=== PATIENT | female | born 1965 | race Caucasian/White ===

== ENCOUNTER 2016-12-01 10:00 | Inpatient (IN) ==
[2016-12-01] MEDS ORDERED: *HR* Midazolam HCl 2 MG/2 ML VIAL ONE (10:09)
[2016-12-01] MEDS ORDERED: *HR* FentaNYL (PF) 100 MCG/2 ML VIAL ONE ×2 (10:09→13:00)
[2016-12-01] MEDS ORDERED: *HR* Rocuronium Bromide 50 MG/5 ML VIAL ONE (10:09)
[2016-12-01] MEDS ORDERED: Lidocaine -MPF 2% 2 ML VIAL ONE (10:09)
[2016-12-01] MEDS ORDERED: Ondansetron 4 MG/2 ML VIAL ONE (10:09)
[2016-12-01] MEDS ORDERED: *HR* Propofol 200 MG/20 ML VIAL IVP ONE (10:10)
[2016-12-01] MEDS ORDERED: Albuterol 2.5 MG/3 ML NEBULIZER IH ONE (10:21)
[2016-12-01] MEDS ORDERED: Vancomycin 750 MG in D5% in Water 250 ML IVPB ONE (10:21)
[2016-12-01] MEDS ORDERED: CeFAZolin Pre 2,000 MG/100 ML 2,000 MG/100 ML BAG IVPB ONE (10:21)
[2016-12-01] MEDS ORDERED: Neostigmine Methylsulfate 3 MG/3 ML SYRINGE ONE (10:25)
[2016-12-01] MEDS ORDERED: Ringers Solution, Lactated 1,000 ML IVC SCH (10:30)
--- NOTE | 2016-12-01 10:39 | Anesthesia Evaluation PreOp ---
Date of Encounter: 12/01/16 Time of Encounter: 10:37 - Past History Planned Operation: Aortobifemoral bypass Cardiac History: HTN, Hyperlipidemia, Cardiac Stent (2 STAN placed ), Other (peripheral vascular disease; infra-renal aortic occlusion) Pulmonary History: Smoker, COPD LACE STRIPPER History: Denies Any Significant HX Other Medical History: Denies Any Significant HX Anesthesia History: No Prior Anesthetic Complications Alcohol Use: none Drug use: none Medications and Allergies Albuterol Sulfate [Albuterol Inhaler] 1 - 2 puff IH Q6HR PRN 08/14/15 [History] Cetirizine HCl [Zyrtec] 10 mg PO DAILY 08/14/15 [History] Citalopram Hydrobromide [Celexa] 10 mg PO DAILY 08/14/15 [History] Gabapentin [Neurontin] 300 mg PO BID 08/14/15 [History] Losartan Potassium [Cozaar] 25 mg PO DAILY 08/14/15 [History] Ranitidine HCl [Zantac] 150 mg PO DAILY 08/14/15 [History] Aspirin 81 mg PO DAILY 30 Days 08/17/15 [Rx] Atorvastatin [Lipitor] 40 mg PO HS 30 Days 08/17/15 [Rx] Budesonide/Formoterol 160/4.5 [Symbicort 160/4.5] 1 puff IH BIDR 30 Days [Rx] Ipratropium/Albuterol Neb [Duoneb] 3 ml IH Q4HR 30 Days 08/17/15 [Rx] OxyCODONE Immed Rel [Roxicodone 5 MG] 10 mg PO Q6HR PRN #20 tablet 08/17/15 [Rx] Clopidogrel [Plavix] 75 mg PO DAILY #30 tablet 10/10/15 [Rx] Metoprolol [Lopressor] 100 mg PO BID #60 tablet 10/10/15 [Rx] Nitroglycerin 0.4 mg SL Q5MIN PRN #30 tab.subl 10/10/15 [Rx] Allergies lisinopril Adverse Reaction (Verified 09/30/15 10:20) Dizziness - Meds/Allergy Pre-op Review Medications Reviewed: Yes Allergies Reviewed: Yes Beta Blockers on Current Med List: Yes If Beta Blockers taken, Date/Time (Last Dose taken): 8-3-17 metoprolol 8 am Anesthesia Results - Labs Laboratory Tests 11/28/16 11/28/16 11/28/16 13:05 13:05 13:05 WBC 8.8 Hgb 12.8 Hct 39.9 Plt Count 280 PT 11.8 INR 1.1 APTT 34.9 Sodium 140 Potassium 4.6 H Chloride 106 Carbon Dioxide 27 BUN 13 Creatinine 1.51 H Est GFR ( Amer) 44 L Est GFR (Non-Af Amer) 36 L BUN/Creatinine Ratio 9 Glucose 98 Calculated Osmolality 290 Calcium 9.5 - Imaging EKG: report reviewed, image reviewed (SR; marked LAD, septal MS (probably old)) Additional studies: TTE: LVEF 60-65% mild prolapse anterior mitral valve leaflet mod MR Anesthesia Exam Last Vital Signs Temp 98.5 F 12/01/16 10:15 Pulse 75 12/01/16 10:15 Resp 18 12/01/16 10:15 BP 140/73 12/01/16 10:15 Pulse Ox 97 12/01/16 10:15 Weight: 56kg NPO (# of Hours): >> 8 hrs - HEENT Pupil (Motor): Pupils equal, EOMI Mallampati: II Teeth: Missing, Poor dentition Denture Type: Upper: Complete Oral Opening: Greater than 3 - LACE STRIPPER LOC: Oriented - Cardiac Rhythm: Regular Murmur: None - Pulmonary Breath Sounds: bilateral Clear Respiratory Effort: Symmetrical Anesthesia Assess/Plan ASA Score: 3 Modified Tisha Scale for Level of Consciousness: Cooperative, oriented, and tranquil Anesthetic Plan: General Monitoring Plan: Standard Monitors, A-Line, CVC Recovery Plan: PACU (or ICU if needed)
--- NOTE | 2016-12-01 11:02 | History & Physical Report ---
Date of Encounter: 12/01/16 Time of Encounter: 10:50 24 Hour HP Update - Instructions Instructions: If the History and Physical is less than 30 days old and was completed prior to A.M. admission and or procedure and has NOT been updated on calendar day of procedure please complete this update prior to performing procedure. - Update Patient reports changes in Medical Condition: No Changes in examination, assessment, or condition: No Changes in Medication: No Preop tests/diagnostics Reviewed: Yes Surgery Remains Indicated: Yes Consent for Planned Operative Procedure(s) Verified: Yes - Pre-Operative Checklist Preoperative Checklist Indicated: Yes Prophylactic Antibiotic Ordered: Yes (Vancomycin due to risk of MRSA) Home Medications Include Beta Blanac: Yes Beta Blanca Taken Today (Day of Surgery): Yes Beta Blanca Taken Yesterday (Day Prior to Surgery): Yes Is VTE Prophylaxis Indicated?: Yes
[2016-12-01] MEDS ORDERED: Heparin 1,000 UNITS/500 mL NS 500 ML ONE (11:13)
[2016-12-01] MEDS ORDERED: *HR* Phenylephrine 10 MG/ML VIAL ONE (12:42)
[2016-12-01] MEDS ORDERED: *HR* Promethazine 25 MG/ML VIAL IVP PRN ×2 (13:28→16:53)
[2016-12-01] MEDS ORDERED: *HR* Metoprolol 5 MG/5 ML VIAL IVP PRN (13:28)
[2016-12-01] MEDS ORDERED: Albuterol 2.5 MG/3 ML NEBULIZER IH PRN (13:28)
[2016-12-01] MEDS ORDERED: Vancomycin 1,000 MG VIAL ONE ×2 (14:52→15:11)
--- NOTE | 2016-12-01 16:31 | Electrocardiograph Report ---
[facility] Test Date: 2016-12-01 Pat Name: Li Forbes Department: [id number] Room: Gender: F Sewing Inspector: ARETHA : 1965 Requested By: Elvin Valdez Order Number: [id number] Reading MD: Jenae Herrera DO Measurements Intervals [place] Rate: 70 P: 65 MI: 207 QRS: -48 QRSD: 83 T: 25 QT: 398 QTc: 418 Interpretive Statements SINUS RHYTHM MARKED LEFT AXIS DEVIATION SEPTAL MYOCARDIAL INFARCTION, PROBABLY OLD SLOW R WAVE PROGRESSION Electronically Signed On 12-01-2016 16:29:10 EDT by Jenae Herrera DO
--- NOTE | 2016-12-01 16:57 | Operative Note ---
Date of procedure: 12/01/16 Pre-op diagnosis: Peripheral vascular disease with disabling claudication Post-op diagnosis: same Procedure: 1. Aortobifemoral bypass with 14 x 7mm Dacron Hemashield graft. 2. Right common and deep femoral endareterectomy. Complications: None Anesthesia: ERIN Surgeon: Elvin Valdez Bulldozer Mechanic: Bora Calloway Estimated blood loss (cc): 300 Specimen: Aortic and femoral thrombus and plaque Condition: stable Disposition: PACU Procedure in Detail: Indications: The patient is a 51 year old female with a history of hypertension , coronary artery disease, hyperlipidemia, tobacco abuse and chronic kidney disease. She was found to have sever disabling claudication due to an aortic occlusion and bilateral iliac artery occlusions. Revascularization was recommended o reduce her risk of limb loss and alleviate symptoms. Procedure: The patient was identified in the preoperative area. The risks, benefits, and alternatives of the procedure were discussed. All questions were answered. The patient was taken to the operating room and placed in supine position on the operating room table. After the induction of general endotracheal anesthesia, he was cleaned and draped in normal sterile fashion. A two surgeon approach was utilized for this procedure in order to minimize anesthetic time and the risks for complications due to the patients comorbid conditions. In addition, a two surgeon approach was used for intraoperative decision making. An oblique incision was made over her right groin sharply. Hemostasis was obtained with electrocautery. Through a process of blunt, sharp, and electrocautery dissection, the right common, deep and superfical femoral arteries were dissected circumferentially and surrounded with vessel loops. An oblique incision was then made over the left groin sharply. Hemostasis was obtained with electrocautery. Through a process of blunt, sharp, and electrocautery dissection, the left common, deep and superficial femoral arteries were dissected circumferentially and surrounded with vessel loops. A midline incision was then made sharply. Hemaostasis was obtained via electrocautery. Through a process of blunt, sharp and electrocautery dissection , the subcutaneous tissue, fascia and peritoneum were traversed. A brief exporation of the abdomen revealed no acute pathology. The aorta was palpated in the retroperitoneum. The retroperitoneum was opened with blunt, sharp and electrocautery dissection. The aorta was dissected along it's anterior, medial and lateral surfaces to below the renal arteries. The dissection was extended down to the aortic bifurcation. A clamp was used to tunnel through the retroperitoneum to each femoral vessel. The patient received 5000 units of intravenous heparin and additional heparin throughout the case to maintain adequate anticoagulation. A 14 x 7mm dacron bifurcated graft was cut to appropriate length. The infrarenal aorta was clamped proximally and distally. A longitudinal incision was made into the aorta between the clamps. Significant plaque and thrombus were removed from the aorta. The aorta was flushed by releasing the clamp and a large organized thrombus emerged. The aorta was clamped again and infused with heparinized saline. The graft was cut to fit the defect and sutured in place with a running 3-0 prolene. After completing the anastamosis, the graft limbs were clamped and the aorta was reopened. Thrombin and gelfoam were used to aid in hemostasis. The graft limbs were tunneled to the femoral vessels. The bilateral femoral vessels were occluded and longitudinal arteriotomies were made in the common femoral arteries. The graft limbs were cut to fit the defects and sutured in place with a running 6-0 Prolene. Prior to completing the anastamoses, the femoral vessels were flushed through the graft anastamoses and heparin was infused into the lumen. The anastamoses were completed and flow was restored in the right lower extremity. After assuring hemodynamic stability, the flow was restored to the left lower extremity. Thrombin and gelfoam were used to aid in hemostasis. Polyphasic signals were noted distal to the anastamoses. The wounds were irrigated with antibiotic-containing saline. Platelet rich and platelet poor plasma were infused into the wounds. Meticulous hemostasis was obtained throughout the wounds with electrocautery. The femoral wounds were reapproximated with layers of 2-0 and 3-0 Vicryl. Skin was reapproximated with 3-0 Monocryl. The abomen and pelvis were irrigated with antibiotic containing saline. Meticulous hemostasis was obtained throughout the retroperitoneum with electrocautery. The retroperitoneum was reapproximated with 2-0 Vicryl. The abdominal contents were returned to their normal anatomic position The nasogastric tube was checked for position. The Fascia was reapproximated with looped PDS suture. The subcutaneous tissue was reapproximated with 2-0 Vicryl. Platelet rich and platelet poor plasma were infused into the wound. Skin was reapproximated with 3-0 Monocryl. Sterile dressings were applied. The patient was extubated and taken to recovery room in stable condition.
--- NOTE | 2016-12-01 17:05 | Operative Note ---
Date of procedure: 12/01/16 Pre-op diagnosis: PAD/claudication Post-op diagnosis: same Procedure: Aortobifemoral bypass graft with 14 x 7 mm Decadron prosthesis Complications: None Anesthesia: GETA Surgeon: Elvin Valdez Co-Surgeon: Bora Calloway Estimated blood loss (cc): 300 Specimen: Aortic plaque Condition: stable Disposition: PACU Procedure in Detail: History Li Forbes is a 51-year-old white female with a long history of lower extremity claudication. Workup had revealed no palpable pulses. CT angiogram demonstrated occlusion of the aortic and iliac area below the renal arteries. The patient now comes the operating room to perform open revascularization. Procedure After informed consent was obtained the patient was taken to the operating room. Gen. endotracheal anesthesia with arterial line monitoring was performed. The abdomen groin and upper thighs were sterilely prepped and draped. A timeout protocol was observed. A 2 surgeon approach was utilized for this procedure due to the patient's comorbid conditions. Also in order to accelerate the time of surgical care and to assist with complex intraoperative decision making. The groin incisions were made simultaneously and dissection was carried down to reveal the femoral bifurcation. Control was obtained of these vessels. Next a longitudinal midline incision was made. Dissection was carried down to the perineal cavity. It was then explored with no obvious pathology encountered with the exception of a hard and pulseless infrarenal abdominal aorta. The viscera were then reflected and the retroperitoneum exposed. Dissection was carried down to reveal the abdominal aorta and the renal arteries. Dissection was also carried distally to expose the aortic bifurcation. With this done control obtained proximally and there was a palpable pulse. A retrograde perineal tunnel was then made on each side and this was marked with umbilical tapes. 5000 units of heparin were then administered intravenously. After 3 minute delay the aorta was clamped immediately below the renal arteries. A longitudinal arteriotomy was made on the anterior surface of the infrarenal aorta. Chronic thrombus and atherosclerotic material was encountered upon opening the vessel. There was no backbleeding or forward bleeding. A formal endarterectomy was then performed of the aorta at this position. Also the clamp was removed so that any loose debris could be retrieved as well. Excellent pulsatile flow was observed. The aortic area was flushed with heparinized saline. An end of graft to side of aorta anastomosis was performed. A 14 x 7 mm Decadron prosthesis was selected. This was sewn in position using 3-0 Prolene. The limbs of the graft were then passed through the previously created tunnels and they were clamped. The proximal anastomosis was then inspected for hemostasis. Attention was then directed to the femoral area. Again while operating simultaneously arteriotomies were made on the common femoral artery and an end of graft to side of femoral artery anastomosis was created using 6-0 Prolene suture. After appropriate backbleeding and flushing the grafts are open first to the right leg and then to the left leg. There is no hemodynamic stress with this maneuver. Excellent Doppler signals and pulses were encountered. Hemostasis was achieved. The wounds were irrigated with antibiotic containing solution and then closed with absorbable suture. In the abdominal area of the retroperitoneum was reapproximated over the graft and [place] aorta area the viscera was then placed back into his normal position. Appropriate positioning of the NG tube was assured. The fascia was then closed with a looped PDS suture 2. The deep subcutaneous tissue and subcuticular tissue were closed using absorbable suture. Dry sterile dressings were then applied. The patient tolerated procedure well. There were no intraoperative complications. Estimated blood loss was 300 mL. A total of approximately 300 mL of blood was returned to the patient via the Cell Saver device.
[2016-12-01] MEDS ORDERED: Acetaminophen IV 1,000 MG/100 ML INFUS..BTL ONE (17:37)
[2016-12-01] MEDS ORDERED: *HR* HYDROmorphone (PF) 1 MG/ML SYRINGE ONE (17:37)
[2016-12-01] MEDS: *HR* HYDROmorphone (PF) 1 MG/ML SYRINGE IVP PRN ×3 (17:38→18:34)
[2016-12-01] MEDS ORDERED: Acetaminophen IV 1,000 MG/100 ML INFUS..BTL IVPB ONE (17:40)
--- NOTE | 2016-12-01 17:44 | Event Note ---
Date of Encounter: 12/01/16 Time of Encounter: 17:30 Patient seen in recovery room. She has palpable pedal pulses. She is hemodynamically stable and comfortable. Will transfer to . Continue with NGT and IVF. Morphine PLANT BREEDER SCIENTIST for pain. Labs in AM. PT/OT consult tomorrow.
[2016-12-01 18:55] LABS: Basophils % 0.2 %; Eosinophils # 0.1 K/mcL (0.0-0.6); Eosinophils % 0.5 %; Hematocrit 34.5 % (35.3-44.9); Immature Granulocytes % 0.6 % (0-4); Lymphocytes # 2.3 K/mcL (0.6-4.6); Lymphocytes % 10.6 %; Mean Corpuscular HGB Conc 31.6 g/dL (31.6-35.5); Mean Corpuscular Hemoglobin 28.9 pg (28.0-33.3); Mean Corpuscular Volume 91.5 fL (83.0-100.0); Mean Platelet Volume 9.3 fL (9.4-12.4); Monocytes # 1.3 K/mcL (0.0-1.3); Monocytes % 5.8 %; Platelet Count 275 K/mcL (140-400); Red Blood Count 3.77 M/mcL (3.82-4.97); Red Cell Distribution Width 13.5 % (11.5-14.5); Segmented Neutrophils % 82.3 %
[2016-12-01 18:57] LABS: Hemoglobin 10.9 g/dL (11.5-15.4); Neutrophils # 17.9 K/mcL (1.6-8.9)
--- NOTE | 2016-12-01 19:52 | Anesthesia Evaluation Post Op ---
Date of Encounter: 12/01/16 Time of Encounter: 19:52 - Vital Signs Vital Signs: Vital Signs/O2 Sat, Most Current Temp Pulse Resp BP Pulse Ox 96.4 F L 61 18 104/67 93 12/01/16 19:20 12/01/16 19:30 12/01/16 19:30 12/01/16 19:30 12/01/16 19:30 - Lungs Lungs: Clear Ascult./Percussion - Airway Airway: Non-obstructed - Cardiovascular Regular Rate - Mental Status Mental Status: Asleep with brisk response to light stimulation - Pain Pain Scale: 3 Pain Scale used: Numeric (1 - 10) - Nausea Vomiting Nausea Vomiting: Not Present - Hydration Hydration: NPO, Aldridge catheter - Discharge PostOp Status: Transfer Patient to floor
[2016-12-01] MEDS ORDERED: Ketorolac 15 MG/ML VIAL IVP SCH (20:38)
[2016-12-01] MEDS ORDERED: Famotidine 20 MG/2 ML VIAL IVP SCH (20:38)
[2016-12-01] MEDS ORDERED: *HR* Metoprolol 5 MG/5 ML VIAL IVP SCH (20:38)
[2016-12-01] MEDS ORDERED: 0.9 % Sodium Chloride 1,000 ML IVC SCH (20:38)
[2016-12-01] MEDS ORDERED: Naloxone 0.4 MG/ML INJ IVP PRN (20:38)
[2016-12-01] MEDS: Budesonide/Formoterol 160/4.5 MDI IH SCH (21:25)
[2016-12-01] MEDS: ceFAZolin 2,000 MG in D5% in Water 100 ML IVPB SCH (21:43)
[2016-12-01] MEDS: *HR* Morphine 30 MG/ 30 ML PCA IVC PRN (22:07)
[2016-12-02] MEDS ORDERED: Vancomycin 750 MG in D5% in Water 250 ML IVPB ONE ×2 (01:00)
[2016-12-02] MEDS: *HR* Metoprolol 5 MG/5 ML VIAL IVP SCH ×4 (03:14→20:54)
[2016-12-02 03:44] LABS: Basophils % 0.1 %; Hematocrit 34.6 % (35.3-44.9); Hemoglobin 11.2 g/dL (11.5-15.4); Immature Granulocytes % 0.3 % (0-4); Lymphocytes # 0.8 K/mcL (0.6-4.6); Lymphocytes % 5.1 %; Mean Corpuscular HGB Conc 32.4 g/dL (31.6-35.5); Mean Corpuscular Hemoglobin 29.1 pg (28.0-33.3); Mean Corpuscular Volume 89.9 fL (83.0-100.0); Mean Platelet Volume 9.8 fL (9.4-12.4); Monocytes % 6.1 %; Platelet Count 222 K/mcL (140-400); Red Blood Count 3.85 M/mcL (3.82-4.97); Red Cell Distribution Width 13.4 % (11.5-14.5); Segmented Neutrophils % 88.4 %
[2016-12-02 03:56] LABS: Calcium 8.4 mg/dL (8.6-10.8); Potassium 4.3 mEq/L (3.5-4.5)
[2016-12-02] MEDS ORDERED: Ketorolac 15 MG/ML VIAL IVP SCH (04:00)
[2016-12-02 04:21] LABS: Ionized Calcium 1.14 mmol/L (1.15-1.35)
[2016-12-02] MEDS ORDERED: *HR* Heparin 5,000 UNIT/ML VIAL SQ SCH (06:00)
[2016-12-02] MEDS: *HR* Heparin 5,000 UNIT/ML VIAL SQ SCH ×2 (06:24→18:46)
[2016-12-02] MEDS: *HR* Labetalol 20 MG/4 ML SYRINGE IVP PRN ×5 (07:32→23:48)
[2016-12-02] MEDS ORDERED: 0.9 % Sodium Chloride 500 ML IVC ONE ×2 (07:49→14:58)
[2016-12-02] MEDS: 0.9 % Sodium Chloride 1,000 ML IVC SCH ×2 (08:48→19:54)
[2016-12-02] MEDS: Aspirin 81 MG TAB.CHEW PO SCH (08:49)
[2016-12-02] MEDS: ceFAZolin 2,000 MG in D5% in Water 100 ML IVPB SCH (09:26)
--- NOTE | 2016-12-02 09:36 | Vascular/[facility] Progress Note ---
Date of Encounter: 12/02/16 Time of Encounter: 07:40 - Assessment and plan (1) Atherosclerosis of [place] arteries of extremities with intermittent claudication, bilateral legs Current Visit: Yes Status: Chronic The patient is postoperative day #1 after an aortobifemoral artery bypass. Her incisions are healing. No heamtoma noted. She has palpable pedal pulses and her compartments are soft. Her NGT was removed. She will remain NPO today. PT consult ordered. (2) CKD (chronic kidney disease) stage 3, GFR 30-59 ml/min Current Visit: Yes Status: Chronic The patient has chronic kidney disease stage III. She has had adequate urine output. She will continue with intravenous fluid hydration. Recheck her labs tomorrow. (3) Hypertension Current Visit: No Status: Chronic Continue with antihypertensives Qualifiers: Hypertension type: essential hypertension Qualified Code(s): I10 - Essential (primary) hypertension (4) Dyslipidemia Current Visit: No Status: Chronic (5) Atherosclerotic heart disease Current Visit: No Status: Acute Qualifiers: Coronary Disease-Associated Artery/Lesion type: [place] artery [place] vs. transplanted heart: [place] heart Associated angina: without angina Qualified Code(s): I25.10 - Atherosclerotic heart disease of [place] coronary artery without angina pectoris (6) Chronic distal aortic occlusion Current Visit: No Status: Chronic (7) Acute blood loss anemia Current Visit: Yes Status: Chronic The patient has acute expected postoperative blood loss anemia. She is hemodynamically stable without evidence of ongoing blood loss. - Subjective Interval history: The patient is alert and reports adequate pain control this morning. She denies nausea. Her NGT has no output. She denies chest pain or shortness of breath. Vital Signs, Last 4 Hours Temp Pulse Resp BP Pulse Ox 12/02/16 06:51 97.9 F 121 19 143/88 93 - Physical Examination General: Present: Conversant, No Apparent Distress HEENT: Present: Atraumatic Neck: Absent: JVD Cardiac: Present: Reg Rate and Rhythm Lungs: Present: Normal Breath Sounds Neuro: Present: Alert and responsive, No focal deficits noted Vascular: Present: Normal capillary refill, Pulse, normal Abdomen: Present: Soft, Other (no bowel sounds, incisional tenderness, mild distension.) Skin: Present: No rashes noted on visualized skin, Wound/ulcer(s) (incisions intact, no erythema, no hematoma) - VTE Documentation of Mechanical Device: Intermittent pneumatic compression device Results 12/02/16 03:35 12/02/16 14:02 Lab Results, Last 24 hours 12/01/16 12/02/16 12/02/16 18:49 03:35 03:35 WBC 21.7 H D 15.8 H Hgb 10.9 L D 11.2 L Hct 34.5 L 34.6 L Plt Count 275 222 Sodium 134 L Potassium 4.3 Chloride 104 Carbon Dioxide 20 BUN 21 H Creatinine 1.60 H Glucose 191 H Calcium 8.4 L Consult Discharge Plan - Plan Referrals: Elvin Valdez MD [Partnered Physician] - 01/09/17 8:40 am Irma Moffett CNP [Advanced Practice Nurse] - 12/09/16 2:00 pm Jenae Monterroso MD [Primary Care Provider] -
[2016-12-02] MEDS ORDERED: Famotidine 20 MG/2 ML VIAL IVP SCH (10:00)
[2016-12-02] MEDS: Budesonide/Formoterol 160/4.5 MDI IH SCH ×2 (10:18→22:56)
[2016-12-02 14:19] LABS: Ionized Calcium 1.26 mmol/L (1.15-1.35)
[2016-12-02 14:21] LABS: Potassium 4.4 mEq/L (3.5-4.5)
[2016-12-02 14:22] LABS: Calcium 9.1 mg/dL (8.6-10.8); Magnesium 1.3 mg/dL (1.6-2.6)
[2016-12-02] MEDS ORDERED: Magnesium Sulfate 2 GM in D5% in Water 100 ML IVPB ONE (14:58)
[2016-12-02] MEDS: Famotidine 20 MG/2 ML VIAL IVP SCH (20:54)
[2016-12-03] MEDS: *HR* Morphine 30 MG/ 30 ML PCA IVC PRN (00:51)
[2016-12-03] MEDS: *HR* Labetalol 20 MG/4 ML SYRINGE IVP PRN ×2 (03:00→21:50)
[2016-12-03] MEDS: *HR* Metoprolol 5 MG/5 ML VIAL IVP SCH ×3 (04:39→18:09)
[2016-12-03 05:04] LABS: Basophils % 0.2 %; Eosinophils % 0.1 %; Hematocrit 25.9 % (35.3-44.9); Immature Granulocytes % 0.5 % (0-4); Lymphocytes # 1.3 K/mcL (0.6-4.6); Lymphocytes % 8.1 %; Mean Corpuscular HGB Conc 32.4 g/dL (31.6-35.5); Mean Corpuscular Volume 89.3 fL (83.0-100.0); Mean Platelet Volume 9.7 fL (9.4-12.4); Monocytes # 1.5 K/mcL (0.0-1.3); Monocytes % 8.8 %; Neutrophils # 13.6 K/mcL (1.6-8.9); Platelet Count 158 K/mcL (140-400); Red Cell Distribution Width 13.6 % (11.5-14.5); Segmented Neutrophils % 82.3 %
[2016-12-03 05:05] LABS: Hemoglobin 8.4 g/dL (11.5-15.4)
[2016-12-03 05:08] LABS: Calcium 8.5 mg/dL (8.6-10.8)
[2016-12-03] MEDS: 0.9 % Sodium Chloride 1,000 ML IVC SCH ×2 (05:32→21:00)
[2016-12-03] MEDS: *HR* Heparin 5,000 UNIT/ML VIAL SQ SCH ×2 (06:29→18:09)
[2016-12-03] MEDS: Aspirin 81 MG TAB.CHEW PO SCH (08:09)
[2016-12-03] MEDS: Famotidine 20 MG/2 ML VIAL IVP SCH ×2 (08:54→21:50)
[2016-12-03] MEDS: Budesonide/Formoterol 160/4.5 MDI IH SCH ×2 (09:49→22:21)
--- NOTE | 2016-12-03 09:49 | Vascular/[facility] Progress Note ---
Date of Encounter: 12/03/16 Time of Encounter: 09:47 - Assessment and plan (1) Chronic distal aortic occlusion Current Visit: Yes Status: Chronic Patient is no second day status post aortobifemoral bypass graft. The graft is widely patent. The patient is hemodynamically stable. She has some persistent tachycardia and increased respiratory effort. I believe this is a combination of postoperative pain and mild atelectasis. Therefore I recommended the patient be up in a chair. I encouraged her to use the HVAC MECHANICAL ENGINEER. We'll increase pulmonary toilet. Decrease IV fluids as patient's BUN/creatinine are improved. - Subjective Interval history: Patient is postoperative day #2 following an aortobifemoral bypass graft. The patient complains of abdominal pain. She does not offer any other specific issues. It is unclear how much the patient is using the HVAC MECHANICAL ENGINEER. Vital Signs, Last 4 Hours Temp Pulse Resp BP Pulse Ox 12/03/16 07:34 97.8 F 118 19 161/87 93 - Physical Examination General: Present: Conversant HEENT: Present: Atraumatic Neck: Absent: JVD Cardiac: Present: Other (Sinus tachycardia) Lungs: Present: Decreased breath sounds Neuro: Present: Alert and responsive, No focal deficits noted Vascular: Present: Pulse, normal, Surgical incisions (Surgical incisions are covered with dry dressings). Absent: Edema Abdomen: Present: Soft, Other (Patient has bowel sounds). Absent: Masses Skin: Present: No rashes noted on visualized skin - VTE Documentation of Mechanical Device: Intermittent pneumatic compression device Results 12/03/16 04:50 12/03/16 04:50 Lab Results, Last 24 hours 12/02/16 12/03/16 12/03/16 14:02 04:50 04:50 WBC 16.5 H Hgb 8.4 L D Hct 25.9 L Plt Count 158 Sodium 137 137 Potassium 4.4 4.0 Chloride 109 110 H Carbon Dioxide 18 L 20 BUN 27 H 25 H Creatinine 1.73 H 1.29 H Glucose 126 H 115 H Calcium 9.1 8.5 L Magnesium 1.3 L Consult Discharge Plan - Plan Referrals: Elvin Valdez MD [Partnered Physician] - 01/09/17 8:40 am Irma Moffett, MELISSA [Advanced Practice Nurse] - 12/09/16 2:00 pm Jneae Monterroso MD [Primary Care Provider] -
[2016-12-04] MEDS: *HR* Metoprolol 5 MG/5 ML VIAL IVP SCH ×5 (02:31→22:06)
[2016-12-04] MEDS: *HR* Heparin 5,000 UNIT/ML VIAL SQ SCH ×2 (04:51→19:59)
[2016-12-04 05:42] LABS: Hematocrit 23.8 % (35.3-44.9); Hemoglobin 7.8 g/dL (11.5-15.4); Mean Corpuscular HGB Conc 32.8 g/dL (31.6-35.5); Mean Corpuscular Hemoglobin 29.5 pg (28.0-33.3); Mean Corpuscular Volume 90.2 fL (83.0-100.0); Mean Platelet Volume 10.5 fL (9.4-12.4); Platelet Count 159 K/mcL (140-400); Red Blood Count 2.64 M/mcL (3.82-4.97); Red Cell Distribution Width 13.9 % (11.5-14.5)
[2016-12-04 05:56] LABS: BUN/Creatinine Ratio 22 (6-26); Blood Urea Nitrogen 22 mg/dL (7-20); Calcium 8.6 mg/dL (8.6-10.8); Carbon Dioxide 20 mEq/L (19-29); Chloride 111 mEq/L (98-109); Glucose 90 mg/dL (70-99); Osmolality,Calculated 291 (280-300); Potassium 3.7 mEq/L (3.5-4.5); Sodium 139 mEq/L (136-145); eGFR For African Americans > 60 (> 60); eGFR For Non-African Americans 58 (> 60)
[2016-12-04] MEDS: Budesonide/Formoterol 160/4.5 MDI IH SCH ×2 (07:59→23:00)
[2016-12-04] MEDS: 0.9 % Sodium Chloride 1,000 ML IVC SCH (08:33)
[2016-12-04] MEDS: Aspirin 81 MG TAB.CHEW PO SCH (08:33)
[2016-12-04] MEDS: Famotidine 20 MG/2 ML VIAL IVP SCH ×2 (08:33→19:59)
--- NOTE | 2016-12-04 10:58 | Vascular/[facility] Progress Note ---
Date of Encounter: 12/04/16 Time of Encounter: 10:56 - Assessment and plan (1) Chronic distal aortic occlusion Current Visit: Yes Status: Chronic Patient is now third day status post aortobifemoral bypass graft. The graft is widely patent. The patient is hemodynamically stable. She has persistent tachycardia. I believe this is due to fluid shifts as I detect no atelectasis today and the patient has remained hemodynamically stable. She has had a appropriate urinary output. Therefore I recommended the patient will continue to be up in a chair and ambulation with assistance will be initiated today. The MURAL PAINTER will be discontinued. Hep-Lock IV. Begin clear liquids without advancement today. - Subjective Interval history: Patient is postoperative day #3 following an aortobifemoral bypass graft. The patient complains of surgical site abdominal pain. She does not offer any other specific issues. Patient is not using the MURAL PAINTER on an hourly basis and thus this will be discontinued. The patient was up in the chair twice yesterday. We will now advance this and the patient will be ambulated. Vital Signs, Last 4 Hours Temp Pulse Resp BP Pulse Ox 12/04/16 08:20 96 98 12/04/16 08:02 16 98 12/04/16 07:25 97.4 F L 101 18 158/91 99 - Physical Examination General: Present: Conversant, No Apparent Distress HEENT: Present: Atraumatic Neck: Absent: JVD Cardiac: Present: Reg Rate and Rhythm, Other (Sinus tachycardia) Lungs: Present: Normal Breath Sounds Neuro: Present: Alert and responsive, No focal deficits noted Vascular: Present: Normal capillary refill, Pulse, normal, Color/Temperature ( Normal color and temperature of feet.), Surgical incisions (Surgical dressings were removed. The surgical sites are clean and dry. There is no sign of infection or cellulitis or fasciitis.). Absent: Cyanosis, Edema Abdomen: Present: Soft, Other (Positive bowel sounds). Absent: Masses - VTE Documentation of Mechanical Device: Intermittent pneumatic compression device Results 12/04/16 05:33 12/04/16 05:33 Lab Results, Last 24 hours 12/04/16 12/04/16 05:33 05:33 WBC 14.1 H Hgb 7.8 L Hct 23.8 L Plt Count 159 Sodium 139 Potassium 3.7 Chloride 111 H Carbon Dioxide 20 BUN 22 H Creatinine 1.01 Glucose 90 Calcium 8.6 Consult Discharge Plan - Plan Referrals: Elvin Valdez MD [Partnered Physician] - 01/09/17 8:40 am Irma Moffett CNP [Advanced Practice Nurse] - 12/09/16 2:00 pm Jenae Monterroso MD [Primary Care Provider] -
[2016-12-04] MEDS: *HR* Morphine 2 MG/ML SYRINGE IVP PRN ×4 (13:56→22:06)
[2016-12-05] MEDS: *HR* Morphine 2 MG/ML SYRINGE IVP PRN ×3 (03:32→10:58)
[2016-12-05] MEDS: *HR* Metoprolol 5 MG/5 ML VIAL IVP SCH ×2 (05:11→10:49)
[2016-12-05] MEDS: *HR* Heparin 5,000 UNIT/ML VIAL SQ SCH (05:11)
[2016-12-05] MEDS: Aspirin 81 MG TAB.CHEW PO SCH (08:14)
[2016-12-05] MEDS: Famotidine 20 MG/2 ML VIAL IVP SCH (08:14)
[2016-12-05] MEDS ORDERED: Bisacodyl 10 MG RECTAL SUPPOSITORY RC ONE (10:30)
[2016-12-05] MEDS: Budesonide/Formoterol 160/4.5 MDI IH SCH (10:39)
--- NOTE | 2016-12-05 13:01 | Discharge Summary ---
Date of Encounter: 12/05/16 Time of Encounter: 07:40 - Discharge Diagnosis (1) Atherosclerosis of [place] arteries of extremities with intermittent claudication, bilateral legs Priority: Primary Status: Chronic Comments: The patient is postoperative day #4 after an aortobifemoral bypass. She is comfortable and her incision is healing well. She has palpable pedal pulses. She is tolerating a diet well. (2) CKD (chronic kidney disease) stage 3, GFR 30-59 ml/min Priority: Secondary Status: Chronic Comments: Her creatinine and GFR have normalized. (3) Hypertension Priority: Secondary Status: Chronic Qualifiers: Hypertension type: essential hypertension Qualified Code(s): I10 - Essential (primary) hypertension (4) Dyslipidemia Priority: Secondary Status: Chronic Comments: She was counseled regarding atherosclerotic risk factor reduction. (5) Atherosclerotic heart disease Priority: Secondary Status: Chronic Qualifiers: Coronary Disease-Associated Artery/Lesion type: [place] artery [place] vs. transplanted heart: [place] heart Associated angina: without angina Qualified Code(s): I25.10 - Atherosclerotic heart disease of [place] coronary artery without angina pectoris (6) Chronic distal aortic occlusion Priority: Secondary Status: Chronic (7) Acute blood loss anemia Priority: Secondary Status: Chronic Comments: The patient had acute expected postoperative blood loss anemia. Her hemoglobin decline to 7.8 appeared to be partially due to intravenous rehydration. [facility] lab results revealed a history of chronic anemia. She remained hemodynamically stable without evidence of ongoing blood loss. (8) Tobacco abuse Priority: Secondary Status: Chronic Comments: She was counseled regarding smoking cessation. - Discharge Medications Prescriptions: OxyCODONE/APAP 5/325 [Percocet 5/325 MG] 1 each PO Q4HR PRN #36 tablet PRN Reason: postoperative pain Home Medications: Albuterol Sulfate [Albuterol Inhaler] 1 - 2 puff IH Q6HR PRN 08/14/15 [History] Citalopram Hydrobromide [Celexa] 10 mg PO DAILY 08/14/15 [History] Gabapentin [Neurontin] 300 mg PO BID 08/14/15 [History] Losartan Potassium [Cozaar] 50 mg PO DAILY 08/14/15 [History] Ranitidine HCl [Zantac] 150 mg PO DAILY 08/14/15 [History] Aspirin 81 mg PO DAILY 30 Days 08/17/15 [Rx] Budesonide/Formoterol 160/4.5 [Symbicort 160/4.5] 1 puff IH BIDR 30 Days [Rx] Metoprolol [Lopressor] 100 mg PO BID #60 tablet 10/10/15 [Rx] Atorvastatin [Lipitor] 40 mg PO DAILY 12/01/16 [History] OxyCODONE Immed Rel [Roxicodone 5 MG] 10 mg PO Q8H PRN 12/01/16 [History] OxyCODONE/APAP 5/325 [Percocet 5/325 MG] 1 each PO Q4HR PRN #36 tablet 12/05/16 [Rx] Allergies/Adverse Reactions: Allergies lisinopril Adverse Reaction (Verified 12/01/16 11:06) Dizziness Date of admission: 12/01/16 17:47 Primary care physician: Jenae Monterroso, Consults: 12/01/16 20:38 Consult to Physical Therapy [CONS] Routine Comment: Evaluate, develop and implement POC Reason for Consult: Postoperative aortobifemoral bypass Procedure(s) Performed: Aorto-bifemoral bypass Discharging clinician: Elvin Valdez Anticipated date of discharge: 12/05/16 - Patient Status Disposition: Home, Self-Care Condition: Good Functional capacity at discharge: independent ambulation Overall status at discharge: patient is progressing back to baseline - Discharge Instructions Instructions: Oxycodone/Acetaminophen (By mouth), Aortofemoral Bypass (DC) Follow Up With: Elvin Valdez MD [Partnered Physician] - 01/09/17 8:40 am Irma Moffett, STUDENT ASSISTANT [Advanced Practice Nurse] - 12/09/16 2:00 pm Jenae Monterroso MD [Primary Care Provider] - Additional Instructions: May shower 12/05/16. Wash wounds gently and pat to dry. No tub baths or swimming until 01/13/17. No lifting over 10 pounds until 01/05/17. No lifting over 20 pounds until 02/04/17. Call Dr. Valdez at [phone] with questions or concerns. - Diet and Activity Activity: increase activity as tolerated Diet: advance to your usual diet - Hospital Course Hospital course: Ms. Forbes is a 51 year old female admitted on 12/01/2016. She underwent an aortobifemoral bypass and was transferred to [address] [place] [address] in stable condition. On postoperative day #1, her pain was controlled. She received intravenous fluid and pain control. She remained hemodynamically stable. She had progressive ambulation and her diet was advanced. On 12/05/2016 she was tolerating a regular diet and her pain was well controlled. She was discharged in stable condition without complications. Time spent discussing smoking cessation with patient: 3 to 10 minutes - Time Spent with Patient Total time spent providing and/or coordinating discharge services: Exam Vital Signs, Last 4 Hours Temp Pulse Resp BP Pulse Ox 12/05/16 10:55 98.1 F 88 16 156/81 97 12/05/16 10:39 20 96 General: Present: Conversant, No Apparent Distress HEENT: Present: Atraumatic Cardiac: Present: Normal S1 and S2 Lungs: Present: Normal Breath Sounds, No Wheeze, Rales, Rhonchi Neuro: Present: Alert and responsive Abdomen: Present: Soft, Other (bowel sounds present, incisional tenderness, incision clean dry and intact without erythema or drainage). Absent: Masses Vascular: Absent: Cyanosis, Edema Skin: Present: Other (incisions clean dry and intact without erythema or drainage) - VTE Documentation of Mechanical Device: Intermittent pneumatic compression device
[2016-12-05 15:14] VITALS: BP 168/85
== END 2016-12-05 17:42 | disposition home or self-care (01) | DRG 271 ==
LOC: SAMDAY 10:00 → 2NNU 17:47
PROVIDERS: ADMIT Surgery; ATTEND Surgery